=== PATIENT | female | born 1995 | race African-American/Black ===

== ENCOUNTER 2017-04-30 18:05 | Emergency (ER) | payer BC ==
[~2017-04-30] VITALS: Ht 182.9 cm; Wt 113.4 kg
[2017-04-30] MEDS ORDERED: GABAPENTIN800 MG ORAL (18:20)
[2017-04-30] MEDS ORDERED: KEPPRA1000 MG ORAL (18:20)
[2017-04-30] MEDS ORDERED: LEXAPRO5 MG ORAL (18:20)
[2017-04-30 19:25] VITALS: BP 110/65
[2017-04-30 19:39] VITALS: BP 0/0
--- NOTE | 2017-05-01 14:48 | Emergency Room Report ---
History of Present Illness General Chief Complaint: Behavioral Complaint Source: Patient Present Illness HPI 21-year-old female presents to ED for evaluation. Patient presented from sober living with high risk case manager. Sober manufacturing engineering manager is concerned that patient has been endorsing suicidal ideation recently. Patient does have history of depression and takes Lexapro. Patient states she does not feel depressed at this time. Denies any suicidal or homicidal ideation. States that a few days ago she was feeling depressed after a phone call with her family. Patient states that she did skip 2 doses of Lexapro when she was feeling depressed. Denies hearing voices. Denies alcohol or drug use. No other aggravating relieving factors. Denies any other associated symptoms Allergies: Coded Allergies: KETOROLAC (Verified Allergy, Unknown, 04/30/17) Patient History Past Medical History: asthma Past Surgical History: none Pertinent Family History: none Social History: Denies: smoking, alcohol use, drug use Last Menstrual Period: 04/19/17 Now: No Immunizations: UTD Reviewed Nursing Documentation: PMH: Agreed, PSxH: Agreed Nursing Documentation-PMH Hx Asthma: Yes History Of Psychiatric Problem: Yes - DEPRESSION, PTSD Hx Seizures: Yes Review of Systems All Other Systems: negative except mentioned in HPI Physical Exam Vital Signs Date Time Temp Pulse Resp B/P (MAP) Pulse Ox O2 Delivery O2 Flow Rate FiO2 04/30/17 18:12 97.9 84 19 102/63 99 Room Air Sp02 EP Interpretation: reviewed, normal General Appearance: no apparent distress, alert, GCS 15, non-toxic Head: normocephalic, atraumatic Eyes: bilateral eye normal inspection, bilateral eye PERRL ENT: hearing grossly normal, normal pharynx, no angioedema, normal voice Neck: full range of motion, supple/symm/no masses Respiratory: chest non-tender, lungs clear, normal breath sounds, speaking full sentences Cardiovascular #1: regular rate, rhythm, no edema Cardiovascular #2: 2+ carotid (R), 2+ carotid (L), 2+ radial (R), 2+ radial (L) , 2+ dorsalis pedis (R), 2+ dorsalis pedis (L) Gastrointestinal: normal bowel sounds, non tender, soft, non-distended, no guarding, no rebound Rectal: deferred Genitourinary: normal inspection, no CVA tenderness Musculoskeletal: back normal, gait/station normal, normal range of motion, non- tender Neurologic: alert, oriented x3, responsive, motor strength/tone normal, sensory intact, speech normal Psychiatric: judgement/insight normal, memory normal, mood/affect normal, no suicidal/homicidal ideation, anxious Reflexes: 3+ bicep (R), 3+ bicep (L), 3+ tricep (R), 3+ tricep (L), 3+ knee (R) , 3+ knee (L) Skin: normal color, no rash, warm/dry, well hydrated Lymphatic: no adenopathy Medical Decision Making Diagnostic Impression: Primary Impression: Depression Qualified Codes: F32.9 - Major depressive disorder, single episode, unspecified ER Course Hospital Course 21-year-old female presents ED with reports of suicidal ideation from sober living facility Differential diagnoses include: withdrawal symtpoms, overdose of psychiatric medications, drug ingestion, psychosis Clinical course Patient placed on stretcher. After initial history physical exam reveals a female in no acute distress. Patient is maintaining good eye contact, speaking in an appropriate manner. Normal affect. No signs of suicidal or homicidal ideation. No hearing voices. Patient admits to feeling depressed a few days ago but none at this time. Did not believe patient does require emergent psychiatric evaluation at this time. Discussed case with social media content manager and she agrees. Patient states she does have her prescription of Lexapro. Patient doesn't knowledge that if she takes her medications as prescribed it does help At this time I see no reason for urgent psychiatric evaluation. However I do encourage her to bring patient immediately for evaluation if symptoms do recur patient and social media content manager agree to plan i. I feel this is a highly complex case requiring extensive working including EKG/Rhythm strip, Xray/CT/US, Blood/urine lab work, repeat exams while in ED, and administration of strong opiates/narcotics for pain control, admission to hospital or close patient follow up. Diagnosis - depression Stable and discharged to sober living. Followup with PMD/psychiatrist. Return to ED if symptoms recur or worsen Last Vital Signs Date Time Temp Pulse Resp B/P (MAP) Pulse Ox O2 Delivery O2 Flow Rate FiO2 04/30/17 19:39 0/0 04/30/17 19:25 97.9 80 19 99 Room Air Status: improved Disposition: HOME, SELF-CARE Condition: Stable Patient Instructions: Depression, Adult, [id number] Additional Instructions: call ER at [phone]; ask for CONCHA Boykin M.D. May 01, 2017 14:48
== END 2017-04-30 19:30 | disposition home or self-care (01) ==
LOC: EMR 18:34
DX: F32.9 Major depressive disorder, single episode, unspecified (principal); Z88.6 Allergy status to analgesic agent; J45.909 Unspecified asthma, uncomplicated; F43.10 Post-traumatic stress disorder, unspecified
CPT/HCPCS: 99283

== ENCOUNTER 2018-02-14 12:41 | Emergency (ER) | payer BC, OTHER ==
[~2018-02-14] VITALS: Ht 182.9 cm; Wt 127.0 kg
[~2018-02-14 12:41] MED LIST: GABAPENTIN800 MG ORAL; KEPPRA1000 MG ORAL; LEXAPRO5 MG ORAL
[2018-02-14 12:52] VITALS: BP 100/66
--- NOTE | 2018-02-14 13:14 | Emergency Room Report ---
History of Present Illness General Chief Complaint: Lower Back Pain or Injury Source: Patient Present Illness HPI 22 Yo Female presents to the ED C/O 02/13 in severity Dysuria, low back pain and abdominal pain x 5 days but most prominent the last 48 hours. pt. reports hematuria. pt. reports constant dull ache in the left lower side of the back. denies nausea, vomiting, constipation or diarrhea. Denies , ill contacts, recent travel, fevers, chills, or hx of STI or recent unprotected intercourse. pt. denies vaginal d/c and reports she made sure to find where the blood is coming from and she reports from the urethra. Denies rashes or lesions. Pt. denies acute intermittent exacerbations of her pain. denies hx of kidney stones. pt. reports pain is primarily on the left side. Denies trauma or fall. Allergies: Coded Allergies: KETOROLAC (Verified Allergy, Unknown, 04/30/17) Patient History Past Medical History: see triage record Past Surgical History: none Pertinent Family History: none Last Menstrual Period: 02/07 Now: No Reviewed Nursing Documentation: PMH: Agreed; PSxH: Agreed Nursing Documentation-PMH Hx Asthma: Yes Hx Seizures: Yes Review of Systems All Other Systems: negative except mentioned in HPI Physical Exam Vital Signs Date Time Temp Pulse Resp B/P (MAP) Pulse Ox O2 Delivery O2 Flow Rate FiO2 02/14/18 12:50 97.7 82 16 100/66 98 Room Air 97.7 Sp02 EP Interpretation: reviewed, normal General Appearance: well appearing, no apparent distress, alert, GCS 15, non- toxic Head: normocephalic, atraumatic Eyes: bilateral eye normal inspection, bilateral eye PERRL ENT: hearing grossly normal, normal voice Neck: full range of motion Respiratory: lungs clear, normal breath sounds, speaking full sentences Cardiovascular #1: regular rate, rhythm Gastrointestinal: normal bowel sounds, non tender, soft, non-distended, no guarding Rectal: deferred Genitourinary: normal inspection, adnexa normal, CVA tenderness (L) Musculoskeletal: back normal, gait/station normal, normal range of motion, non- tender - posterior left sided back musculature is TTP. Neurologic: alert, oriented x3, responsive, motor strength/tone normal, sensory intact, speech normal, grossly normal Psychiatric: judgement/insight normal Skin: normal color, no rash, warm/dry, well hydrated Lymphatic: no adenopathy Medical Decision Making PA Attestation Dr. Fraire is my supervising physician whom pt. management has been discussed with. Diagnostic Impression: Primary Impression: Urinary tract infection Qualified Codes: N30.01 - Acute cystitis with hematuria ER Course 22 Yo Female presents to the ED C/O 02/13 in severity Dysuria, low back pain and abdominal pain x 5 days but most prominent the last 48 hours. pt. reports hematuria. pt. reports constant dull ache in the left lower side of the back. denies nausea, vomiting, constipation or diarrhea. Denies , ill contacts, recent travel, fevers, chills, or hx of STI or recent unprotected intercourse. pt. denies vaginal d/c and reports she made sure to find where the blood is coming from and she reports from the urethra. Denies rashes or lesions. Pt. denies acute intermittent exacerbations of her pain. denies hx of kidney stones. pt. reports pain is primarily on the left side. Denies trauma or fall. Ddx considered but are not limited to UTi , Pyelo, STI, Stone, Cystitis, PID just to name a few. Vital signs: are WNL, pt. is afebrile H&PE are most consistent with UTI , CVA tenderness with possible renal involvement. Pt. also has significant superficial / musculature ttp which is more consistent with possible muscle strain. no localized adnexal ttp. Stone is also suspected given some of the HPI, symptoms on-going for almost a week, and pt. is NAD so of lesser suspicion as well. ORDERS: - UA labs are attached- moderate bacteria with elevated leuks. RBC's and occult blood noted. ED INTERVENTIONS: -Alma PO. -Pt. does not appear to have acute abdomen, torsion is not suspected at this time. Due to patient's CVA tenderness will treat more aggressively as possible pyelonephritis. This patient is nontoxic in appearance and in no acute distress I do not feel that IV antibiotics are necessary at this time. I feel that this patient is stable for close outpatient follow-up as I do not currently identify an emergent condition. DISCHARGE: At this time pt. is stable for d/c to home. Will provide printed patient care instructions, and any necessary prescriptions. Care plan and follow up instructions have been discussed with the patient prior to discharge. Labs Test 02/14/18 13:00 Urine Color Yellow Urine Appearance Clear Urine pH 8 (4.5-8.0) Urine Specific [place] 1.010 (1.005-1.035) Urine Protein Negative (NEGATIVE) Urine Glucose (UA) Negative (NEGATIVE) Urine Ketones Negative (NEGATIVE) Urine Blood 2+ (NEGATIVE) Urine Nitrite Negative (NEGATIVE) Urine Bilirubin Negative (NEGATIVE) Urine Urobilinogen Normal MG/DL (0.0-1.0) Urine Leukocyte Esterase 2+ (NEGATIVE) Urine RBC 2-4 /HPF (0 - 2) Urine WBC 2-4 /HPF (0 - 2) Urine Squamous Epithelial Cells Moderate /LPF (NONE/OCC) Urine Bacteria Moderate /HPF (NONE) Urine HCG, Qualitative Negative (NEGATIVE) Last Vital Signs Date Time Temp Pulse Resp B/P (MAP) Pulse Ox O2 Delivery O2 Flow Rate FiO2 02/14/18 12:50 97.7 82 16 100/66 98 Room Air 97.7 Disposition: HOME, SELF-CARE Condition: Stable Scripts Cefixime (SUPRAX) 400 Mg Capsule 400 MG PO DAILY for 14 Days, #14 CAP Prov: Merlyn Ferreira 02/14/18 Hydrocodone Bit/Acetaminophen 5-325* (NORCO 5-325*) 1 Each Tablet 1 TAB ORAL Q6H PRN for For Pain, #10 TAB 0 Refills Prov: Merlyn Ferreira 02/14/18 Phenazopyridine Hcl* (PYRIDIUM*) 200 Mg Tablet 200 MG ORAL THREE TIMES A DAY for 3 Days, #9 TAB 0 Refills Prov: Merlyn Ferreira 02/14/18 Patient Instructions: Urinary Tract Infection Additional Instructions: Take medications as directed. Follow up with a Primary Care Provider in 3-5 days, even if your symptoms have resolved. --Please review list of primary care clinics, if you do not already have a primary care provider Return sooner to ED if new symptoms occur, or current symptoms become worse. Do not drink alcohol, drive, or operate heavy machinery while taking [ ] as this may cause drowsiness. - Please note that this Emergency Department Report was dictated using archifybioinformatics assistant technology software, occasionally this can lead to erroneous entry secondary to interpretation by the dictation equipment. Merlyn Ferreira Feb 14, 2018 13:14
[2018-02-14] MEDS ORDERED: Norco 5mg/325mg tab ORAL ONE (13:15)
[2018-02-14 13:22] LABS: APPEARANCE,URINE CLEAR; BILIRUBIN, URINE NEGATIVE (NEGATIVE); COLOR,URINE YELLOW; GLUCOSE, URINE (UA) NEGATIVE (NEGATIVE); KETONES,URINE NEGATIVE (NEGATIVE); LEUKOCYTE ESTERASE ,URINE 2+ (NEGATIVE); NITRITE,URINE NEGATIVE (NEGATIVE); PH,URINE 8 (4.5-8.0); PROTEIN,URINE NEGATIVE (NEGATIVE); UROBILINOGEN,URINE NORMAL MG/DL (0.0-1.0)
[2018-02-14] MEDS ORDERED: PHENAZOPYRIDIN200 MG ORAL (14:17)
[2018-02-14] MEDS ORDERED: NORCO 5-325 TA1 EACH ORAL (14:17)
[2018-02-14] MEDS ORDERED: SUPRAX400 M1 PO (14:17)
[2018-02-14 14:26] VITALS: BP 100/66
== END 2018-02-14 14:25 | disposition home or self-care (01) ==
LOC: EMR 13:30
DX: N39.0 Urinary tract infection, site not specified (principal)
CPT/HCPCS: 81003; 81025; 87086; 87181; 99283